=== PATIENT | male | born 1955 | race Caucasian/White ===

== ENCOUNTER → 2016-08-12 | Outpatient (CLI) | payer OTHER, MEDICARE | END | disposition home or self-care (01) | LOC: RAD.S 08:17 | DX: K86.1 Other chronic pancreatitis (principal); R10.9 Unspecified abdominal pain; G89.29 Other chronic pain; K86.89 Other specified diseases of pancreas; K63.89 Other specified diseases of intestine ==

== ENCOUNTER → 2016-09-20 | Outpatient (CLI) | payer OTHER, MEDICARE | END | disposition home or self-care (01) | LOC: PTH.S 07:30 → RAD.S 08:00 | DX: R10.10 Upper abdominal pain, unspecified (principal); R10.13 Epigastric pain; R11.2 Nausea with vomiting, unspecified; K21.9 Gastro-esophageal reflux disease without esophagitis; K86.89 Other specified diseases of pancreas; R60.0 Localized edema; Z90.49 Acquired absence of other specified parts of digestive tract ==

== ENCOUNTER → 2016-09-27 | Outpatient (CLI) | payer OTHER, MEDICARE | END | disposition home or self-care (01) | LOC: PTH.S 09-24 14:00 | DX: R93.5 Abnormal findings on diagnostic imaging of other abdominal regions, including retroperitoneum (principal) ==